=== PATIENT | male | born 1940 | race Caucasian/White ===

== ENCOUNTER 2018-03-21 05:40 | Inpatient (IN) | payer OTHER ==
[2018-03-14 13:42] VITALS: BMI 27.5
[2018-03-21] MEDS ORDERED: CEFAZOLIN 2 GM in DEXTROSE 5%-WATER - 50 ML IVPB ONE (06:05)
[2018-03-21] MEDS ORDERED: ROPIVICAINE 0.2%/MORPH PF/KETOROLAC - 51ML DISP.SYRINGE IA ONE ×4 (06:05→10:44)
[2018-03-21] MEDS ORDERED: TRANEXAMIC ACID 1000 MG/10 ML VIAL IVPUSH ONE (06:05)
[2018-03-21] MEDS: PANTOPRAZOLE 40 MG TABLET (FP) PO ONE (06:30)
[2018-03-21] MEDS: CELECOXIB 200 MG CAPSULE PO ONE ×2 (06:30→13:37)
[2018-03-21] MEDS: oxyCODONE HCL 10 MG SUSTAINED ACTING TABLET PO ONE (06:30)
[2018-03-21] MEDS: GABAPENTIN 300 MG CAPSULE (FP) PO ONE (06:30)
--- NOTE | 2018-03-21 07:14 | HP ---
Admitting History and Physical - Admission Chief Complaint: right knee osteoarthritis x years History of Present Illness: 78-year-old male presenting in regard to his right knee. Patient has a long- standing history of right knee osteoarthritis. Patient complains of pain, limited range of motion, difficulty ambulating, and difficulty with activities of daily living. Patient has failed conservative treatment measures including PO medications, activity modification, exercise program, and injections. As patient has failed conservative treatment measures, he would like to proceed with surgical intervention, right total knee arthroplaty - MAKOplasty. History Source: Patient - Past Medical History Cardiovascular: Yes: HTN Gastrointestinal: Yes: GERD - Past Surgical History Additional Past Surgical History: See written history & physical. - Smoking History Smoking history: Never smoked Have you smoked in the past 12 months: No - Alcohol/Substance Use Hx Alcohol Use: Yes (OCCASIONALLY) Home Medications - Allergies Allergies/Adverse Reactions: Allergies Allergy/AdvReac Type Severity Reaction Status Date / Time No Known Allergies Allergy Verified 03/14/18 13:30 - Home Medications Home Medications: Ambulatory Orders Metoprolol Succinate [Toprol Xl] 25 mg PO DAILY 03/14/18 Omeprazole 40 mg PO DAILY 03/14/18 Acetaminophen [Tylenol] 650 mg PO BID PRN 03/21/18 Review of Systems - Review of Systems Musculoskeletal: reports: Crepitus (right knee), Decreased ROM (right knee), Joint Pain (right knee), Joint Swelling (right knee) Physical Examination Vital Signs: Vital Signs Temperature 98.0 F 03/21/18 06:40 Pulse Rate 61 03/21/18 06:40 Respiratory Rate 18 03/21/18 06:40 Blood Pressure 131/72 03/21/18 06:40 O2 Sat by Pulse Oximetry (%) Constitutional: Yes: Well Nourished, No Distress Eyes: Yes: Conjunctiva Clear HENT: Yes: Atraumatic, Normocephalic Neck: Yes: Supple Cardiovascular: Yes: Regular Rate and Rhythm Respiratory: Yes: Regular ...Rectal Exam: Yes: Deferred Musculoskeletal: Yes: Joint Stiffness (right knee), Joint Swelling (right knee) Assessment/Plan 78-year-old male presenting in regard to his right knee. Patient has a long- standing history of right knee osteoarthritis. Patient complains of pain, limited range of motion, difficulty ambulating, and difficulty with activities of daily living. Patient has failed conservative treatment measures including PO medications, activity modification, exercise program, and injections. As patient has failed conservative treatment measures, he would like to proceed with surgical intervention. Pros, cons, risks, benefits and alternatives of a right total knee arthroplaty - MAKOplasty was discussed with the patient at length. Patient confirms his understand and consents to proceed with a right total knee arthroplasty, MAKOplasty.
[2018-03-21] MEDS ORDERED: DEXAMETHASONE SOD PHOSPHATE/PF 10 MG/ML SDV ONE (07:22)
[2018-03-21] MEDS ORDERED: MIDAZOLAM HCL 2 MG/2 ML SINGLE DOSE VIAL ONE (07:23)
[2018-03-21] MEDS ORDERED: BUPIVACAINE LIPOSOME/PF (EXPAREL) 266 MG/20 ML VIAL ONE (07:23)
[2018-03-21] MEDS ORDERED: BUPIVACAINE HCL/PF 2.5 MG/ML - 30 ML VIAL IJ ONE (07:28)
[2018-03-21] MEDS ORDERED: TRANEXAMIC ACID 1000 MG/10 ML VIAL ONE ×2 (07:54→08:20)
[2018-03-21] MEDS ORDERED: VANCOMYCIN 1,000 MG VIAL (RESTRICTED TO ID ONLY) ONE (07:55)
[2018-03-21] MEDS ORDERED: ceFAZolin SODIUM 1 GM VIAL ONE ×2 (07:55→08:20)
[2018-03-21] MEDS ORDERED: DEXAMETHASONE SOD PHOSPHATE 4 MG/1 ML VIAL ONE (08:20)
[2018-03-21] MEDS ORDERED: ONDANSETRON 4 MG/2 ML VIAL ONE (08:20)
[2018-03-21] MEDS ORDERED: PROPOFOL 20 ML ONE ×2 (08:26→09:36)
[2018-03-21] MEDS ORDERED: TRANEXAMIC ACID 1000 MG/10 ML VIAL IVPB ONE ×2 (09:19→10:44)
[2018-03-21] MEDS ORDERED: VANCOMYCIN 1,000 MG VIAL (RESTRICTED TO ID ONLY) IVPB ONE ×2 (09:20→10:44)
[2018-03-21] MEDS ORDERED: ePHEDrine SULFATE 50 MG/1 ML AMPULE ONE (09:36)
[2018-03-21] MEDS ORDERED: MAG HYDROX/AL HYDROX/SIMETH 30 ML UNIT-DOSE CUP PO PRN (11:27)
[2018-03-21] MEDS ORDERED: MAGNESIUM HYDROX 2400MG/30ML ORAL SUSPENSION 30 ML CUP PO PRN (11:27)
[2018-03-21] MEDS ORDERED: ONDANSETRON 4 MG/2 ML VIAL IVPUSH PRN ×2 (11:27→11:32)
--- NOTE | 2018-03-21 11:27 | OP ---
Operative Note - Note: Operative Date: 03/21/18 Pre-Operative Diagnosis: Right knee OA Operation: Right MAKOplasty TKA Post-Operative Diagnosis: Same as Pre-op Surgeon: Terrance Smith [place] Supervisor: Courtney Sandra Anesthesia: Spinal Estimated Blood Loss (mls): 100
[2018-03-21] MEDS ORDERED: LACTATED RINGERS SOLUTION 1,000 ML IV SCH (11:30)
[2018-03-21] MEDS ORDERED: oxyCODONE HCL 5 MG TABLET PO PRN ×2 (11:32)
[2018-03-21] MEDS ORDERED: PROMETHAZINE HCL 25 MG/1 ML VIAL IVPUSH PRN (11:32)
[2018-03-21] MEDS: KETOROLAC TROMETHAMINE 30 MG/1 ML VIAL IVPUSH SCH ×2 (11:45→17:40)
[2018-03-21] MEDS: ACETAMINOPHEN 1000 MG/100 ML VIAL (NON FORMULARY) IVPB ONE (11:50)
[2018-03-21] MEDS: traMADol HCL 50 MG TABLET PO SCH ×2 (11:55→17:30)
[2018-03-21] MEDS: CEFAZOLIN 2 GM/D5W 2 GM/50 ML ML IVPB SCH (18:00)
[2018-03-21] MEDS: ACETAMINOPHEN 325 MG TABLET (FP) PO SCH (18:00)
[2018-03-21] MEDS ORDERED: DEXAMETHASONE SOD PHOSPHATE 10 MG/1 ML VIAL IVPB ONE (20:00)
[2018-03-21] MEDS: SENNOSIDES/DOCUSATE COMBO (SENNA PLUS) TABLET (UD) PO SCH (21:48)
[2018-03-21] MEDS: oxyCODONE HCL 10 MG SUSTAINED ACTING TABLET PO SCH (21:50)
[2018-03-21] MEDS: ASCORBIC ACID 500 MG TABLET (FP) PO SCH (21:50)
[2018-03-21] MEDS: GABAPENTIN 300 MG CAPSULE (FP) PO SCH (21:50)
[2018-03-21] MEDS ORDERED: GABAPENTIN 300 MG CAPSULE (FP) PO SCH (22:00)
[2018-03-22] MEDS: traMADol HCL 50 MG TABLET PO SCH ×5 (00:05→23:44)
[2018-03-22] MEDS: ACETAMINOPHEN 325 MG TABLET (FP) PO SCH ×5 (00:06→23:40)
[2018-03-22] MEDS: KETOROLAC TROMETHAMINE 30 MG/1 ML VIAL IVPUSH SCH ×2 (00:07→05:53)
[2018-03-22] MEDS: CEFAZOLIN 2 GM/D5W 2 GM/50 ML ML IVPB SCH (02:18)
[2018-03-22] MEDS: ASPIRIN 325 MG TABLET PO SCH (08:00)
[2018-03-22 08:12] LABS: HEMATOCRIT 34.7 % (35.4-49); HEMOGLOBIN 11.4 GM/dl (11.7-16.9); MCHC 32.9 g/dl (32.0-35.9); MEAN CELL VOLUME 94.4 fl (80-96); MEAN PLT VOLUME 7.4 fl (7.5-11.1); PLATELET COUNT 205 K/MM3 (134-434); RBC 3.68 M/mm3 (4.00-5.60); RDW 13.9 % (11.9-15.9)
[2018-03-22] MEDS: ASCORBIC ACID 500 MG TABLET (FP) PO SCH ×2 (09:26→22:00)
[2018-03-22] MEDS: oxyCODONE HCL 10 MG SUSTAINED ACTING TABLET PO SCH ×2 (09:27→21:35)
[2018-03-22] MEDS: PANTOPRAZOLE 40 MG TABLET (FP) PO SCH (09:27)
[2018-03-22] MEDS: metoPROLOL SUCCINATE 25 MG TAB.SR.24H (FP) PO SCH (09:27)
[2018-03-22] MEDS: GABAPENTIN 300 MG CAPSULE (FP) PO SCH ×2 (09:27→21:34)
[2018-03-22] MEDS: SENNOSIDES/DOCUSATE COMBO (SENNA PLUS) TABLET (UD) PO SCH ×2 (09:28→21:31)
[2018-03-22] MEDS: MULTIVITAMINS (DAILY MVI) TABLET (FP) PO SCH (09:28)
[2018-03-22 09:59] LABS: ANION GAP 7 (8-16); BLOOD UREA NITROGEN 39 mg/dl (7-18); CALCIUM 8.8 mg/dl (8.4-10.2); CHLORIDE 104 mmol/L (98-107); CO2 23 mmol/L (22-28); CREATININE 1.7 mg/dl (0.6-1.3); GLUCOSE,RANDOM 172 mg/dl (74-106); POTASSIUM 4.7 mmol/L (3.5-5.1); SODIUM 134 mmol/L (136-145)
[2018-03-22] MEDS ORDERED: CELECOXIB 200 MG CAPSULE PO SCH (10:00)
--- NOTE | 2018-03-22 12:50 | PN ---
Progress Note (short form) - Note Progress Note: Anesthesia PostOp: 78 yo male POD#1 s/p TKA S: Patient sitting in chair, eating, has no pain, able to participate in therapy and walk O: VSS A/P: Encouraged continued participation in PT, use of IS and ambulation as instructed. No anesthesia issues.
[2018-03-22] MEDS: oxyCODONE HCL 10 MG SUSTAINED ACTING TABLET PO ONE (19:34)
[2018-03-22] MEDS: GABAPENTIN 300 MG CAPSULE (FP) PO ONE (19:34)
[2018-03-22] MEDS: ACETAMINOPHEN 1000 MG/100 ML VIAL (NON FORMULARY) IVPB ONE (19:35)
[2018-03-22] MEDS: PANTOPRAZOLE 40 MG TABLET (FP) PO ONE (19:35)
--- NOTE | 2018-03-22 20:37 | PN ---
Progress Note (short form) - Note Progress Note: Pt seen and examined. Doing well. AVSS Selected Entries 03/22/18 22:00 Temperature 97.9 F Pulse Rate 61 Respiratory 18 Rate Blood Pressure 128/75 O2 Sat by Pulse 97 Oximetry (%) Oxygen Delivery Room Air Method Laboratory Tests 03/22/18 03/22/18 07:25 07:25 WBC 17.0 H Hgb 11.4 L Hct 34.7 L Plt Count 205 Sodium 134 L Potassium 4.7 Chloride 104 Carbon Dioxide 23 Anion Gap 7 L BUN 39 H Creatinine 1.7 H Random Glucose 172 H Calcium 8.8 Gen: NAD RLE: c/d/i, NVID A/P s/p R Shahram TKA D/C in AM after PT
--- NOTE | 2018-03-23 05:45 | DS ---
Physical Examination Vital Signs: Vital Signs Temperature 97.9 F 03/22/18 22:00 Pulse Rate 61 03/22/18 22:00 Respiratory Rate 18 03/22/18 22:00 Blood Pressure 128/75 03/22/18 22:00 O2 Sat by Pulse Oximetry (%) 97 03/22/18 22:00 Labs: CBC, BMP 03/22/18 07:25 03/22/18 07:25 Discharge Summary Reason For Visit: OSTEOARTHRITIS RIGHT KNEE Current Active Problems Osteoarthritis of right knee (Acute) Procedures: Principal: right tanner tka Hospital Course: Admitted for elective surgery. Procedure performed without complications. Pt received postoperative antibiotic prophylaxis and DVT ppx. Ambulated with physical therapy. Stable for discharge home with outpatient followup. Condition: Stable - Instructions Diet, Activity, Other Instructions: Dr. Smith - Knee Replacement Instructions Keep the Aquacel dressing on until removed by Dr. Smith in 10-14 days - it is antibacterial and waterproof and you can shower with it on. Call the office for a follow-up appointment with Dr. Smith in 10-14 days. Take one Aspirin 325mg daily for 6 weeks to prevent blood clots in your legs. Resume taking Omeprazole daily to protect against heartburn and ulcers. Take Cephalexin (antibiotic) 3x/day for 10 days to help prevent skin infection. Take a multivitamin, stool softener, and extra vitamin C supplement daily. For pain: *Mild pain (1-3/10): Take 1 Tramadol tablet every 4 hours as needed. Moderate pain (4-6/10): Take 1 Tramadol tablet and 1 Percocet tablet every 4 hours as needed. Severe pain (7-10/10): Take 1 Tramadol tablet and 2 Percocet tablets every 4 hours as needed. Activity: You can put as much weight on the operative leg as you want. Right after you get home, there will be a physical therapist coming to your house to help you walk around and bend/straighten your knee. After your follow-up appointment, you will be sent for more intensive outpatient physical therapy which will include machines and equipment that the home therapist cannot bring to your house. Always use a walker or cane for balance and to prevent falls. Expect to see swelling/bruising from the operative site all the way down to your toes. Wear the compression stocking on the operative side during the day to minimize how much swelling there is in your foot/ankle. Don't wear the stocking at night. You don't have to wear a stocking on the other side. Disposition: [facility]/HOME HEALTH CARE - Home Medications Comprehensive Discharge Medication List: Ambulatory Orders Metoprolol Succinate [Toprol Xl] 25 mg PO DAILY 03/14/18 Omeprazole 40 mg PO DAILY 03/14/18 Ascorbic Acid [Vitamin C -] 500 mg PO BID tablet 03/23/18 Aspirin [ASA -] 325 mg PO DAILY@0800 tablet 03/23/18 Cephalexin Monohydrate [Keflex -] 500 mg PO TID #30 capsule 03/23/18 Multivitamins [Multivit ([facility] Formulary)] 1 tab PO DAILY tab 03/23/18 Oxycodone HCl/Acetaminophen [Percocet 5-325 mg Tablet] 1 - 2 tab PO Q4H PRN #60 tablet MDD 8 03/23/18 Sennosides/Docusate Sodium [Pericolace -] 1 tablet PO BID tablet 03/23/18 traMADol HCL [Ultram -] 50 mg PO Q4H PRN #90 tablet MDD 6 03/23/18
[2018-03-23 06:23] VITALS: BP 134/65; PULSE 51; TEMP 98
[2018-03-23] MEDS: ASPIRIN 325 MG TABLET PO SCH (08:00)
[2018-03-23 08:26] LABS: HEMATOCRIT 32.9 % (35.4-49); MCH 31.5 pg (25.7-33.7); MCHC 33.4 g/dl (32.0-35.9); MEAN CELL VOLUME 94.4 fl (80-96); MEAN PLT VOLUME 7.8 fl (7.5-11.1); PLATELET COUNT 181 K/MM3 (134-434); RBC 3.48 M/mm3 (4.00-5.60); RDW 13.9 % (11.9-15.9); WHITE BLOOD COUNT 14.5 K/mm3 (4.0-10.8)
[2018-03-23] MEDS: PANTOPRAZOLE 40 MG TABLET (FP) PO SCH (10:17)
[2018-03-23] MEDS: GABAPENTIN 300 MG CAPSULE (FP) PO SCH (10:17)
[2018-03-23] MEDS: SENNOSIDES/DOCUSATE COMBO (SENNA PLUS) TABLET (UD) PO SCH (10:17)
[2018-03-23] MEDS: MULTIVITAMINS (DAILY MVI) TABLET (FP) PO SCH (10:17)
[2018-03-23] MEDS: oxyCODONE HCL 10 MG SUSTAINED ACTING TABLET PO SCH (10:17)
[2018-03-23] MEDS: ASCORBIC ACID 500 MG TABLET (FP) PO SCH (10:18)
[2018-03-23] MEDS: metoPROLOL SUCCINATE 25 MG TAB.SR.24H (FP) PO SCH (10:18)
--- NOTE | 2018-03-25 18:07 | PATH ---
Surgical Pathology Report Patient Name: EMMA MASSEY Med. Rec. #: [id number] /Age/Gender: 1940 (Age: 78) / M Account: [id number] Location: [facility] Taken: 03/21/2018 Received: 03/21/2018 Reported: 03/25/2018 Physicians: Terrance Smith M.D. Specimen(s) Received RIGHT KNEE BONE Clinical History Osteoarthritis right knee Final Diagnosis BONE, KNEE, RIGHT, TOTAL KNEE REPLACEMENT MAKOPLASTY: BONE WITH DEGENERATIVE JOINT DISEASE. Electronically Signed Gia Aragon M.D. Gross Description Received in formalin labeled "right knee bone," is a 10.4 x 8.0 x 1.7 cm aggregate of multiple portions of bone. The tibial plateau measures 7.9 x 6.0 x 1.5 cm. There is a 2.3 cm in greatest dimension area of eburnation present. The remaining articular surfaces are torrez-yellow and diffusely granular. The underlying trabecular bone is yellow and hard. A medical billing representative section is submitted in one cassette, following decalcification. 03/22/2018 [facility]03/22/2018
--- NOTE | 2018-04-04 08:53 | OP ---
DATE OF OPERATION: 03/21/2018 PREOPERATIVE DIAGNOSIS: Right knee osteoarthritis. POSTOPERATIVE DIAGNOSIS: Right knee osteoarthritis. PROCEDURE: Right total knee replacement with MAKOplasty robotic navigation. ATTENDING: Tj Monge MD MAT ROLLER: CHRISTIAN Garcia ANESTHESIA: Spinal plus sedation. ESTIMATED BLOOD LOSS: 100 mL COMPLICATIONS: None. SPECIMENS: Resected bone was sent for pathology analysis. DISPOSITION: The patient was transferred to the PACU in stable condition. IMPLANTS USED: Stephane Triathlon size 5 femoral component, size 6 tibial component, 38-mm polyethylene component, 11-mm posterior-stabilized polyethylene component. INDICATIONS: This is a 78-year-old male who presented to the office complaining of bilateral knee pain. He was seen and examined by Dr. Monge and diagnosed with severe bilateral knee osteoarthritis. The patient's right knee was the more painful of the two. He was initially treated with injections, medications, and physical therapy but continued to have severe knee pain and was, therefore, indicated for a right total knee replacement. The risks, benefits, and alternatives of the procedure were explained to the patient in great detail, and he elected to proceed with the surgery. On the day of surgery, the patient was taken to the operating room and placed on the OR table. Spinal anesthesia was administered by the anesthesiologist. The patient was then positioned supine on the table, and all bony prominences were padded. The right knee was then prepped and draped in the usual sterile fashion, and intravenous antibiotics were given for infection prophylaxis. A surgical timeout was then performed with the team, and the patient's identity, procedure, side, availability of implants, and the administration of antibiotics was confirmed. With the knee flexed, a midline incision was made and carried down through the subcutaneous fat to the underlying retinaculum. A medial parapatellar arthrotomy was performed. This was followed by a subperiosteal dissection of the tissue off the proximal medial tibia. A portion of fat pad was removed from under the patellar tendon, and a small portion of fat was excised off the distal supracondylar femur. Electrocautery and an VIPAARamantys bipolar sealing device were used to achieve hemostasis. The knee was then flexed further, and the anterior horn of the lateral meniscus was released from the midline. Next, the anterior and posterior cruciate ligaments were transected. Osteophytes were removed from both the femur and tibia. Grade 4 changes were noted diffusely throughout the knee. Femoral and tibial checkpoints were then placed in the appropriate location using a mallet. Two parallel bicortical self-drilling pins were placed in the tibial diaphysis after making small stab incisions and bluntly dissecting down to bone. Two pins were then placed in the distal supracondylar femur. The BView navigation arrays were then attached to both the femoral and tibial pins, and the lower extremity was then registered to the robotic navigation device using various joint movements as well as inputting several dozen reference points. The knee was then taken through a full range of motion with corrective force applied. Alignment in varus/valgus as well as flexion/extension and soft tissue balance was measured in various positions. The navigation device showed a numerical and graphic representation of the soft tissue balance. The components were repositioned virtually using the software until optimal soft tissue balance was achieved on screen. Once this was accomplished, the final plan was saved and sent to the robot. Self-retaining retractors were then placed at the joint line for exposure and protection of the collateral ligaments. The robot was brought into the sterile field and registered with the navigation device. The robotic arm was attached. Oscillating saw blade was then used to perform femoral and tibial bone cuts as per the saved software plan. The femoral box-cut was made using the manual cutting guide. The knee was then irrigated. Trial components were placed, and the knee was taken through a full range of motion to assess soft tissue balance and alignment. The range of motion was found to be excellent, and the soft tissue balance was optimal and according to plan. The knee was then put into extension and the patella everted. The synovium around the patella was circumscribed with electrocautery. The caliper was used to measure the patellar thickness, and a saw was then used to resect the patella at the chondro-osseous junction. The cut surface was then sized and drilled for the appropriate patellar button with creatinine taken to medialize it. The trial patella was then placed, and the knee was again taken through a full range of motion. The knee was found to have both good balance and good patellar tracking. All of the components were removed except the tibial baseplate. The appropriate instrumentation was used to drill and punch the proximal tibia for the keel of the final component. All bony surfaces were then cleaned with pulsatile lavage and dried. Cementless Nexvet Triathlon knee replacement components were then impacted in place and found to have a stable press-fit. The trial polyethylene component was placed, and the knee was put into extension. The patella was then again everted, and a [place] Triathlon cementless patellar component was affixed to the cut surface of the patella. The knee was then taken through a full range of motion to assess stability, balance, and patellar tracking. These were found to be optimal, and the trial polyethylene was then exchanged for the appropriately sized real implant. The wound was then thoroughly irrigated with normal saline. A 3-minute dilute Betadine lavage was performed. The knee was again irrigated using a pulsatile lavage device. A barbra-articular injection was used to locally infiltrate the capsular tissue surrounding the implant and prosthesis. Number 1 Polysorb and number 0 V-Loc 180 barbed sutures were used to close the arthrotomy. Number 1 Polysorb and 2-0 V-Loc 90 sutures were used in the subcutaneous tissues, and 4-0 undyed Vicryl and Dermabond skin adhesive was used to close the stab incisions made for the navigation pins. The skin was closed using both 3-0 V-Loc 90 suture in a running subcuticular fashion and Dermabond skin adhesive. Once this was completed, a sterile Aquacel dressing and compressive Braulio wrap were applied. The patient was then awakened and taken to the PACU in stable condition. TJ MONGE M.D. [id number]
== END 2018-03-23 13:00 | disposition home health service (06) | DRG 470 ==
LOC: FM/S 05:40
PROVIDERS: ADMIT Student in an Organized Health Care Education/Training Program; ATTEND Student in an Organized Health Care Education/Training Program
PROC: 8E0Y0CZ Robotic Assisted Procedure of Lower Extremity, Open Approach (ICD-10-PCS; 2018-03-21)
PROC: 0SRC0JZ Replacement of Right Knee Joint with Synthetic Substitute, Open Approach (ICD-10-PCS; principal; 2018-03-21 08:49)
DX: M17.11 Unilateral primary osteoarthritis, right knee (principal); I10 Essential (primary) hypertension; K21.9 Gastro-esophageal reflux disease without esophagitis
CPT/HCPCS: 36415; 73560-TC-RT-FY; 80048; 85027; 88304-TC; 88311-TC; 94760; 97116-GP; 97162-GP; J0131; J1100